=== PATIENT | male | born 1995 | race Caucasian/White ===

== ENCOUNTER 2016-05-09 17:26 | Emergency (ER) | payer SELFPAY ==
[2016-05-09] MEDS ORDERED: MORPHINE SULFATE 10 MG/ML AMP IM ONE (18:08)
[2016-05-09] MEDS ORDERED: DIPH,PERTUSS(ACELL),TET VAC/PF 0.5 ML DISP.SYRIN IM ONE (18:08)
[2016-05-09] MEDS ORDERED: Lidocaine 1% 5ml(IM or SUTURE)(PAIN CLINIC) ONE ×2 (18:09→18:47)
--- NOTE | 2016-05-09 19:07 | Diagnostic Imaging Report ---
STONEY LYNCH [facility] [id number] [facility] [address] [address] Report Submission Date: May 09, 2016 6:11:02 PM HUMAN RESOURCE CONSULTANT Patient Study Name: J CARLOS HARRIS Date: May 09, 2016 5:52:48 PM HUMAN RESOURCE CONSULTANT Modality Type: CR Gender: M Description: UPPER EXTREMITY : 89 Institution: [facility] Physician: STONEY LYNCH Left hand -three views CLINICAL HISTORY: Chain saw injury. Laceration. FINDINGS: Examination left hand in palmar, lateral and oblique views fails to demonstrate evidence of fracture, dislocation or other bone or joint pathology. There is a semiopaque dressing overlying the lateral aspect of the hand. There is no opaque foreign body in the soft tissues or evidence of soft tissue gas. IMPRESSION: No fracture. Electronically signed on May 09, 2016 6:11:02 PM HUMAN RESOURCE CONSULTANT by: Thomas SILVA
--- NOTE | 2016-05-09 19:15 | ED Physician Documentation ---
Upper Extremity Injury - HISTORIAN Historian: patient - HPI Stated Complaint: L hand inj Chief Complaint: Hand Injury Onset: just prior to arrival Where: work Severity: moderate Context: other (cut with chainsaw ) Modifying Factors: pain on movement Further Comments: yes (20 yo male with left hand injury. Pt was helping cut wood and chainsaw "kicked back" cutting his hand. Pt is left handed. No numbness distally. Moves all digits appropriately) - ROS CONST: no problems - PAST HX Past History: Lt handed Allergies/Adverse Reactions: Allergies Allergy/AdvReac Type Severity Reaction Status Date / Time amoxicillin trihydrate Allergy Verified 05/09/16 18:08 [From Augmentin] potassium clavulanate Allergy Verified 05/09/16 18:08 [From Augmentin] Home Medications: Ambulatory Orders Medication Instructions Recorded Acetaminophen with Codeine 1 each PO Q6H PRN #15 tablet 05/09/16 [Tylenol with Codeine #4 Tablet] Cephalexin [Keflex] 500 mg PO QID #40 capsule 05/09/16 - SOCIAL HX Smoking History: less than 1 pack/day - FAMILY HX Family History: none - VITAL SIGNS Vital Signs: Vital Signs Temp Pulse Resp BP Pulse Ox 99.2 F 108 H 18 150/70 97 05/09/16 17:51 05/09/16 17:51 05/09/16 17:51 05/09/16 17:51 05/09/16 17:51 - REVIEWED ASSESSMENTS Nursing Assessment Reviewed: Yes Vitals Reviewed: Yes Procedures Wound Location: upper extremity (left hand) Wound's Depth, Shape: superficial Wound Explored: clean Betadine Prep?: Yes Anesthesia: 1% Lidocaine Wound Debrided: extensive Wound Repaired With: sutures Suture Size/Type: 5:0, nylon Number of Sutures: 16 Layer Closure?: No Sterile Dressing Applied?: Yes ED Results Lab/Radiology - Orders Orders: ED Orders Category Date Time Status XRAY HAND 3 OR MORE VIEWS [HAND 3 VIEWS OR MORE] [RAD] Exams 05/09/16 Completed Stat Diph,Pertuss(Acell),Tet Vac/Pf [Adacel] Med 05/09/16 18:08 Discontinued 0.5 ml IM .ONCE ONE Lidocaine 1% 5ml(IM or SUTURE) [Xylocaine] Med 05/09/16 18:09 Discontinued 50 mg .ROUTE .STK-MED ONE Lidocaine 1% 5ml(IM or SUTURE) [Xylocaine] Med 05/09/16 18:47 Discontinued 50 mg .ROUTE .STK-MED ONE Morphine Sulfate Med 05/09/16 18:08 Discontinued 5 mg IM NOW ONE Upper Extremity Injury Physic - Physical Exam General Appearance: no acute distress, alert Hand: laceration (complex laceration left hand at webbing, no apparent tendon involvement) Wrist: normal inspection Elbow/Forearm: normal inspection Neuro/Vascular/Tendon: no vascular compromise, motor nml, sensation nml Resp/CVS: chest non-tender Discharge Clincal Impression: Hand laceration Qualifiers: Encounter type: initial encounter Laterality: left Qualified Code(s): S61.412A - Laceration without foreign body of left hand, initial encounter Additional Instructions: Keep dressing placed in ER on for 24 hours Wash wound daily with soap and water Apply triple antibiotic ointment daily and cover wound with bulky dressing of choice Sutures out in 10 days Keflex 500mg four times daily for 10 days Tylenol #3 every 4-6 hours as needed for pain Home Medications: Ambulatory Orders Acetaminophen with Codeine [Tylenol with Codeine #4 Tablet] 1 each PO Q6H PRN # 15 tablet 05/09/16 Cephalexin [Keflex] 500 mg PO QID #40 capsule 05/09/16 Condition: Good Disposition: 01 HOME, SELF-CARE Decision to Admit: NO Decision Time: 19:19
[2016-05-09] MEDS ORDERED: CEPHALEXIN 250 MG CAPSULE PO ONE (19:31)
[2016-05-09] MEDS ORDERED: ACETAMINOPHEN WITH CODEINE 300MG/30MG TABLET PO ONE (19:32)
[2016-05-09 19:50] VITALS: BP 140/76
== END 2016-05-09 19:40 | disposition home or self-care (01) ==
LOC: ED 17:26
DX: S61.412A Laceration without foreign body of left hand, initial encounter (principal); W29.3XXA Contact with powered garden and outdoor hand tools and machinery, initial encounter
CPT/HCPCS: 73130; 90715; J2270; 12002; 90471; 96372; 99284

== ENCOUNTER 2019-01-11 20:09 | Emergency (ER) | payer SELFPAY ==
[2019-01-11] MEDS ORDERED: HYDROcodone /APAP 5/325 1 EACH TABLET ONE (20:50)
== END 2019-01-11 20:55 | disposition home or self-care (01) ==
LOC: ED 20:09
DX: T23.202A Burn of second degree of left hand, unspecified site, initial encounter (principal); X08.8XXA Exposure to other specified smoke, fire and flames, initial encounter
CPT/HCPCS: 99283; 99284